=== PATIENT | male | born 1995 | race Caucasian/White ===

== ENCOUNTER 2020-12-20 07:10 | Day surgery (SDC) | payer OTHER ==
[~2020-12-20] VITALS: Ht 172.7 cm; Wt 87.9 kg
[~2020-12-20 07:10] MED LIST: LR 1,000 ML IV SCH; RA M10TA PO
[2020-12-20] MEDS ORDERED: MIDAZOLAM INJ 2MG/2ML VIAL (J2250 PER 1MG) As Ordered ONE (08:03)
[2020-12-20] MEDS ORDERED: propofoL 200 MG/20 ML VIAL As Ordered ONE (08:03)
[2020-12-20] MEDS ORDERED: ROCURONIUM BROMIDE 50 MG/5 ML VIAL As Ordered ONE (08:03)
[2020-12-20] MEDS ORDERED: LIDOCAINE 2% 100MG/5ML SDV (FOR ANES.) As Ordered ONE (08:03)
[2020-12-20] MEDS ORDERED: fentaNYL 100 MCG/2 ML INJECTION (J3010) As Ordered ONE ×2 (08:04→09:40)
[2020-12-20] MEDS ORDERED: BUPIVACAINE HCL 0.5% 10ML VIAL As Ordered ONE (08:07)
[2020-12-20] MEDS ORDERED: HYDR1SOL PO (08:16)
[2020-12-20] MEDS ORDERED: IBUP1TAB7 PO (08:16)
[2020-12-20] MEDS ORDERED: CEPH250REC PO (08:17)
[2020-12-20] MEDS ORDERED: fentaNYL 250 MCG/5 ML INJECTION (J3010) As Ordered ONE (08:33)
[2020-12-20] MEDS ORDERED: dexameTHASONE 4 MG/ML 1ML VIAL (J1100 PER 1MG) As Ordered ONE (08:35)
[2020-12-20] MEDS ORDERED: ONDANSETRON 4MG/2ML VIAL As Ordered ONE ×2 (08:35→09:39)
[2020-12-20] MEDS ORDERED: KETOROLAC 60MG 2ML VIAL As Ordered ONE (08:35)
[2020-12-20] MEDS ORDERED: ESMOLOL INJ 100MG/10ML VIAL As Ordered ONE (08:41)
[2020-12-20] MEDS ORDERED: SUGAMMADEX SODIUM 500 MG/5 ML VIAL (BRIDION) As Ordered ONE (08:49)
[2020-12-20] MEDS ORDERED: ONDANSETRON 4MG/2ML VIAL IV PRN (09:45)
[2020-12-20] MEDS ORDERED: PERCOCET 5MG/325MG TAB PO PRN ×2 (09:45→12:25)
[2020-12-20] MEDS ORDERED: METOCLOPRAMIDE INJ 10MG/2ML VIAL (J2765 PER 1) IV PRN (09:45)
[2020-12-20] MEDS ORDERED: MEPERIDINE INJ 25 MG/ML VIAL (J2175) IV PRN (09:45)
[2020-12-20] MEDS ORDERED: HYDROcodone/APAP LIQUID 7.5-325MG 15ML UDC (LORTAB ELIXIR) PO PRN (09:45)
[2020-12-20] MEDS ORDERED: IBUPROFEN 800 MG TAB PO PRN (09:45)
[2020-12-20] MEDS ORDERED: LR 1,000 ML IV SCH (09:45)
[2020-12-20] MEDS: fentaNYL 100 MCG/2 ML INJECTION (J3010) IV PRN ×3 (09:49→10:20)
[2020-12-20 12:26] VITALS: BP 135/78
== END 2020-12-20 12:40 | disposition home or self-care (01) ==
LOC: M SDC 07:10
PROVIDERS: ATTEND Specialist
DX: J35.01 Chronic tonsillitis (principal)
CPT/HCPCS: 42826; 88302; J1100; J1885; J2250; J2405; J3010